=== PATIENT | male | born 1950 | race Caucasian/White ===

== ENCOUNTER 2023-02-19 07:10 | Inpatient (IN) | payer MEDICARE ==
[2023-02-19] VITALS (10 sets, daily range): BP systolic 99–131; BP diastolic 53–84; TEMP 96.1–98.6; O2SAT 92–96
[~2023-02-19] VITALS: Ht 177.8 cm; Wt 111.4 kg
[2023-02-19] MEDS ORDERED: ONDANSETRON 4MG 2ML VIAL IV ONE (08:10)
[2023-02-19] MEDS ORDERED: LIDOCAINE 2% 5ML JELLY UROJET TOP ONE (08:10)
[2023-02-19] MEDS: MORPHINE 2 MG/ML 1ML VIAL IV PRN ×4 (08:23→22:25)
[2023-02-19 09:37] LABS: HEMATOCRIT 37.8 % (42.0-52.0); HEMOGLOBIN 12.7 g/dl (13.5-17.5); MEAN CORPUSCULAR HGB CONC 33.6 g/dl (32.0-36.5); MEAN CORPUSCULAR VOLUME 92.2 fl (80.0-96.0); PLATELET COUNT, AUTOMATED 184 10^3/uL (150-450); WHITE BLOOD COUNT 18.8 10^3/uL (4.0-10.0)
[2023-02-19 10:08] LABS: BLOOD UREA NITROGEN 10 MG/DL (9-23); CALCIUM LEVEL 9.4 MG/DL (8.3-10.6); CARBON DIOXIDE LEVEL 25 MMOL/L (20-31); CHLORIDE LEVEL 103 MMOL/L (98-107); CREATININE FOR GFR 0.82 MG/DL (0.70-1.30); GLOMERULAR FILTRATION RATE > 60.0 (>42); GLUCOSE, FASTING 100 MG/DL (74-106); POTASSIUM SERUM 3.9 MMOL/L (3.5-5.1); SODIUM LEVEL 134 MMOL/L (136-145)
[2023-02-19] MEDS ORDERED: MED REC IN PROGRESS XX SCH (10:15)
[2023-02-19] MEDS ORDERED: LISI20TA33 PO (10:32)
[2023-02-19] MEDS ORDERED: VENL75CA47 PO (10:37)
[2023-02-19] MEDS ORDERED: HOME MED LIST COMPLETE! XX SCH (10:40)
[2023-02-19] MEDS ORDERED: MAALOX 30 ML SUSP *UDC PO PRN (10:45)
[2023-02-19] MEDS ORDERED: MOM 30ML SUSPENSION UDC PO PRN (10:45)
[2023-02-19] MEDS: NS 1,000 ML IV SCH (12:45)
[2023-02-19] MEDS: DOCUSATE SODIUM 100MG CAPSULE PO SCH ×2 (12:56→22:20)
[2023-02-19] MEDS: VENLAFAXINE **XR** 75MG CAPSULE PO SCH (12:57)
[2023-02-19] MEDS ORDERED: ceFAZolin 1GM VIAL As Ordered ONE ×2 (14:42→15:43)
[2023-02-19] MEDS ORDERED: ceFAZolin 2 GM/D5W 50 ML IV BAG As Ordered ONE (14:56)
[2023-02-19] MEDS ORDERED: KETAMINE HCL 200MG/20ML VIAL As Ordered ONE (15:09)
[2023-02-19] MEDS ORDERED: LIDOCAINE 2% 100MG/5ML SDV (FOR ANES.) As Ordered ONE (15:09)
[2023-02-19] MEDS ORDERED: ONDANSETRON 4MG 2ML VIAL As Ordered ONE (15:09)
[2023-02-19] MEDS ORDERED: propofoL 200 MG/20 ML VIAL As Ordered ONE (15:09)
[2023-02-19] MEDS ORDERED: fentaNYL 100 MCG/2 ML INJECTION As Ordered ONE (15:09)
[2023-02-19] MEDS ORDERED: DESFLURANE 240 ML INHALANT As Ordered ONE (15:45)
[2023-02-19] MEDS ORDERED: ACETAMINOPHEN 1000MG 100ML IV BAG As Ordered ONE (17:07)
[2023-02-19] MEDS ORDERED: KETOROLAC 60MG 2ML VIAL As Ordered ONE (17:09)
[2023-02-19] MEDS: ceFAZolin SOD 2 GM in IV 1 EA IV SCH (22:20)
[2023-02-19] MEDS: ACETAMINOPHEN TAB 650MG DOSE (2X325MG) PO PRN (23:06)
[2023-02-20] VITALS (12 sets, daily range): BP systolic 101–123; BP diastolic 60–81; TEMP 98.2–102.1; O2SAT 91–97
[2023-02-20] MEDS ORDERED: MORPHINE 2 MG/ML 1ML VIAL IV PRN (01:15)
[2023-02-20] MEDS ORDERED: carisoprodoL 350 MG TAB PO PRN (01:15)
[2023-02-20] MEDS ORDERED: GABAPENTIN 100 MG CAP PO ONE (02:00)
[2023-02-20] MEDS: ceFAZolin SOD 2 GM in IV 1 EA IV SCH (06:00)
[2023-02-20] MEDS: NS 1,000 ML IV SCH ×3 (06:00→23:06)
[2023-02-20 06:17] LABS: BASO % 0.2 % (0.0-1.0); EOS % 0.3 % (0.0-3.0); HEMATOCRIT 29.7 % (42.0-52.0); LYMPH % 18.1 % (24.0-44.0); MEAN CORPUSCULAR HEMOGLOBIN 31.5 pg (27.0-33.0); MEAN CORPUSCULAR HGB CONC 33.7 g/dl (32.0-36.5); MEAN CORPUSCULAR VOLUME 93.7 fl (80.0-96.0); MONO # 1.1 10^3/uL (0.0-0.8); MONO % 9.5 % (2.0-8.0); NEUTROPHILS # 7.9 10^3/uL (1.5-8.5); NEUTROPHILS % 71.5 % (36.0-66.0); PLATELET COUNT, AUTOMATED 140 10^3/uL (150-450); RED BLOOD COUNT 3.17 10^6/uL (4.30-6.10); WHITE BLOOD COUNT 11.1 10^3/uL (4.0-10.0)
[2023-02-20 06:37] LABS: BLOOD UREA NITROGEN 13 MG/DL (9-23); CALCIUM LEVEL 7.7 MG/DL (8.3-10.6); CARBON DIOXIDE LEVEL 24 MMOL/L (20-31); CHLORIDE LEVEL 104 MMOL/L (98-107); CREATININE FOR GFR 0.79 MG/DL (0.70-1.30); GLOMERULAR FILTRATION RATE > 60.0 (>42); GLUCOSE, FASTING 106 MG/DL (74-106); MAGNESIUM LEVEL 1.7 MG/DL (1.8-2.4); POTASSIUM SERUM 3.6 MMOL/L (3.5-5.1); SODIUM LEVEL 135 MMOL/L (136-145)
[2023-02-20] MEDS ORDERED: MAG SULF 1GM/100ML (MAG RUN) 1 GM in IV 1 EA IV ONE (08:00)
[2023-02-20] MEDS: DOCUSATE SODIUM 100MG CAPSULE PO SCH ×3 (09:00→20:45)
[2023-02-20] MEDS: VENLAFAXINE **XR** 75MG CAPSULE PO SCH (09:07)
[2023-02-20] MEDS: ACETAMINOPHEN TAB 650MG DOSE (2X325MG) PO PRN ×2 (09:07→18:24)
[2023-02-20] MEDS ORDERED: FUROSEMIDE 20MG/2ML VIAL IV ONE (16:00)
[2023-02-20] MEDS: PERCOCET 5MG/325MG TAB PO PRN (17:02)
[2023-02-20] MEDS: ENOXAPARIN 40MG/0.4ML SYRINGE (J1650 PER 10MG) SC SCH (17:03)
[2023-02-20] MEDS ORDERED: VANCOMYCIN HCL 1,000 MG, VIAL MATE ADAPTER 1 EACH in D5W 250 ML IV SCH (18:25)
[2023-02-20] MEDS: PIPERACILLIN/TAZOBACTAM SOD 3.375 GM in D5W MINI-BAG PLUS 50 ML IV SCH ×2 (18:58→23:07)
[2023-02-20 19:02] LABS: BASO % 0.2 % (0.0-1.0); EOS % 0.2 % (0.0-3.0); HEMATOCRIT 29.5 % (42.0-52.0); HEMOGLOBIN 10.1 g/dl (13.5-17.5); LYMPH # 1.7 10^3/uL (1.5-5.0); LYMPH % 14.9 % (24.0-44.0); MEAN CORPUSCULAR HEMOGLOBIN 31.5 pg (27.0-33.0); MEAN CORPUSCULAR HGB CONC 34.2 g/dl (32.0-36.5); MEAN CORPUSCULAR VOLUME 91.9 fl (80.0-96.0); MONO # 1.1 10^3/uL (0.0-0.8); MONO % 9.6 % (2.0-8.0); NEUTROPHILS # 8.5 10^3/uL (1.5-8.5); NEUTROPHILS % 74.7 % (36.0-66.0); PLATELET COUNT, AUTOMATED 147 10^3/uL (150-450); RED BLOOD COUNT 3.21 10^6/uL (4.30-6.10); WHITE BLOOD COUNT 11.4 10^3/uL (4.0-10.0)
[2023-02-20 19:27] LABS: ALBUMIN 2.5 G/DL (3.2-5.2); ALKALINE PHOSPHATASE 73 U/L (46-116); ALT/SGPT 27 U/L (7.0-40); AST/SGOT 87 U/L (<34); BILIRUBIN,TOTAL 0.9 MG/DL (0.3-1.2); BLOOD UREA NITROGEN 9 MG/DL (9-23); CALCIUM LEVEL 8.3 MG/DL (8.3-10.6); CARBON DIOXIDE LEVEL 27 MMOL/L (20-31); CHLORIDE LEVEL 100 MMOL/L (98-107); GLOMERULAR FILTRATION RATE > 60.0 (>42); GLUCOSE, FASTING 116 MG/DL (74-106); MAGNESIUM LEVEL 1.6 MG/DL (1.8-2.4); POTASSIUM SERUM 3.6 MMOL/L (3.5-5.1); SODIUM LEVEL 134 MMOL/L (136-145); TOTAL PROTEIN 5.2 G/DL (5.7-8.2)
[2023-02-20] MEDS ORDERED: VANCOMYCIN HCL 1,000 MG, VIAL MATE ADAPTER 1 EACH in D5W 250 ML IV ONE ×2 (20:00→21:00)
[2023-02-20] MEDS ORDERED: NS 1,000 ML IV ONE (20:10)
[2023-02-20] MEDS ORDERED: IBUPROFEN 400MG TAB PO ONE (20:35)
[2023-02-21] MEDS ORDERED: MAGNESIUM OXIDE 400MG TAB (MAG-OX) PO ONE
[2023-02-21] MEDS ORDERED: NS 1,000 ML IV ONE (00:05)
[2023-02-21 02:30] VITALS: BP 109/62; TEMP 98.7; O2SAT 96
[2023-02-21] MEDS: PERCOCET 5MG/325MG TAB PO PRN ×3 (02:35→23:09)
[2023-02-21 04:09] LABS: BASO % 0.3 % (0.0-1.0); EOS # 0.1 10^3/uL (0.0-0.5); EOS % 0.6 % (0.0-3.0); HEMOGLOBIN 9.7 g/dl (13.5-17.5); LYMPH # 2.1 10^3/uL (1.5-5.0); MEAN CORPUSCULAR HEMOGLOBIN 31.2 pg (27.0-33.0); MEAN CORPUSCULAR HGB CONC 33.4 g/dl (32.0-36.5); MEAN CORPUSCULAR VOLUME 93.2 fl (80.0-96.0); MONO # 1.4 10^3/uL (0.0-0.8); MONO % 12.5 % (2.0-8.0); NEUTROPHILS # 7.8 10^3/uL (1.5-8.5); NEUTROPHILS % 68.1 % (36.0-66.0); PLATELET COUNT, AUTOMATED 130 10^3/uL (150-450); RED BLOOD COUNT 3.11 10^6/uL (4.30-6.10); WHITE BLOOD COUNT 11.5 10^3/uL (4.0-10.0)
[2023-02-21 04:35] LABS: BLOOD UREA NITROGEN 7 MG/DL (9-23); CALCIUM LEVEL 7.3 MG/DL (8.3-10.6); CARBON DIOXIDE LEVEL 26 MMOL/L (20-31); CHLORIDE LEVEL 107 MMOL/L (98-107); GLOMERULAR FILTRATION RATE > 60.0 (>42); GLUCOSE, FASTING 105 MG/DL (74-106); MAGNESIUM LEVEL 1.8 MG/DL (1.8-2.4); POTASSIUM SERUM 4.2 MMOL/L (3.5-5.1); SODIUM LEVEL 138 MMOL/L (136-145)
[2023-02-21 05:40] VITALS: BP 117/66; TEMP 99; O2SAT 96
[2023-02-21] MEDS: PIPERACILLIN/TAZOBACTAM SOD 3.375 GM in D5W MINI-BAG PLUS 50 ML IV SCH ×4 (06:19→23:06)
[2023-02-21] MEDS: CYCLOBENZAPRINE 5MG TABLET PO PRN (06:29)
[2023-02-21] MEDS ORDERED: VANCOMYCIN HCL 750 MG, VIAL MATE ADAPTER 1 EACH in D5W 250 ML IV SCH (08:00)
[2023-02-21] MEDS: DOCUSATE SODIUM 100MG CAPSULE PO SCH ×2 (08:30→22:57)
[2023-02-21] MEDS: VENLAFAXINE **XR** 75MG CAPSULE PO SCH (08:30)
[2023-02-21] MEDS ORDERED: VANCOMYCIN HCL 500 MG in D5W MINI-BAG PLUS 100 ML IV SCH (09:00)
[2023-02-21 10:00] VITALS: BP 120/67; TEMP 98.9; O2SAT 98
[2023-02-21] MEDS: ACETAMINOPHEN TAB 650MG DOSE (2X325MG) PO PRN ×2 (11:14→23:58)
[2023-02-21 14:00] VITALS: BP 150/89; TEMP 98.2; O2SAT 97
[2023-02-21] MEDS: ENOXAPARIN 40MG/0.4ML SYRINGE (J1650 PER 10MG) SC SCH (17:22)
[2023-02-21 18:00] VITALS: BP 121/78; TEMP 98.6; O2SAT 95
[2023-02-21 23:27] VITALS: BP 126/79; TEMP 100.6; O2SAT 95
[2023-02-22 02:04] VITALS: BP 100/68; TEMP 98.9; O2SAT 95
[2023-02-22] MEDS: PIPERACILLIN/TAZOBACTAM SOD 3.375 GM in D5W MINI-BAG PLUS 50 ML IV SCH (05:44)
[2023-02-22 06:00] VITALS: BP 121/75; TEMP 97.4; O2SAT 96
[2023-02-22 06:13] LABS: BASO % 0.3 % (0.0-1.0); EOS # 0.2 10^3/uL (0.0-0.5); EOS % 1.6 % (0.0-3.0); HEMATOCRIT 28.4 % (42.0-52.0); HEMOGLOBIN 9.5 g/dl (13.5-17.5); LYMPH # 2.6 10^3/uL (1.5-5.0); LYMPH % 25.9 % (24.0-44.0); MEAN CORPUSCULAR HEMOGLOBIN 31.7 pg (27.0-33.0); MEAN CORPUSCULAR HGB CONC 33.5 g/dl (32.0-36.5); MEAN CORPUSCULAR VOLUME 94.7 fl (80.0-96.0); MONO # 1.1 10^3/uL (0.0-0.8); MONO % 10.9 % (2.0-8.0); NEUTROPHILS # 6.1 10^3/uL (1.5-8.5); NEUTROPHILS % 60.8 % (36.0-66.0); PLATELET COUNT, AUTOMATED 155 10^3/uL (150-450); WHITE BLOOD COUNT 10.1 10^3/uL (4.0-10.0)
[2023-02-22 06:25] LABS: BLOOD UREA NITROGEN 7 MG/DL (9-23); CALCIUM LEVEL 7.8 MG/DL (8.3-10.6); CARBON DIOXIDE LEVEL 28 MMOL/L (20-31); CHLORIDE LEVEL 105 MMOL/L (98-107); CREATININE FOR GFR 0.69 MG/DL (0.70-1.30); GLOMERULAR FILTRATION RATE > 60.0 (>42); GLUCOSE, FASTING 99 MG/DL (74-106); MAGNESIUM LEVEL 1.8 MG/DL (1.8-2.4); POTASSIUM SERUM 3.6 MMOL/L (3.5-5.1); SODIUM LEVEL 139 MMOL/L (136-145)
[2023-02-22 06:30] LABS: PROCALCITONIN 0.13 ng/ml
[2023-02-22] MEDS: PERCOCET 5MG/325MG TAB PO PRN ×3 (06:30→17:42)
[2023-02-22] MEDS: DOXYCYCLINE HYCLATE 100MG TABLET PO SCH ×2 (08:36→20:13)
[2023-02-22] MEDS: VENLAFAXINE **XR** 75MG CAPSULE PO SCH (08:36)
[2023-02-22] MEDS: DOCUSATE SODIUM 100MG CAPSULE PO SCH ×2 (08:38→20:12)
[2023-02-22 10:00] VITALS: BP 124/82; TEMP 98.7; O2SAT 94
[2023-02-22 14:00] VITALS: BP 116/75; TEMP 98.2; O2SAT 95
[2023-02-22 14:09] LABS: CK-MB VALUE MASS < 1.0 NG/ML (<3.6)
[2023-02-22 14:15] LABS: CPK CREATINE PHOSPHOKINASE 1156 U/L (46-171); MB/CK RELATIVE INDEX 0.08 (< OR =4)
[2023-02-22 15:02] LABS: CK-MB VALUE MASS 1.9 NG/ML (<3.6)
[2023-02-22 15:04] LABS: MB/CK RELATIVE INDEX 0.16 (< OR =4)
[2023-02-22] MEDS: ENOXAPARIN 40MG/0.4ML SYRINGE (J1650 PER 10MG) SC SCH (16:06)
[2023-02-22 20:00] VITALS: BP 137/79; TEMP 98.5; O2SAT 96
[2023-02-22] MEDS: CYCLOBENZAPRINE 5MG TABLET PO PRN (20:27)
[2023-02-23] MEDS: PERCOCET 5MG/325MG TAB PO PRN ×3 (00:22→14:44)
[2023-02-23 02:00] VITALS: BP 117/70; TEMP 98.2; O2SAT 95
[2023-02-23 06:00] VITALS: BP 130/84; TEMP 97.9; O2SAT 95
[2023-02-23 06:31] LABS: BASO % 0.4 % (0.0-1.0); EOS # 0.2 10^3/uL (0.0-0.5); EOS % 2.6 % (0.0-3.0); HEMATOCRIT 27.2 % (42.0-52.0); HEMOGLOBIN 9.2 g/dl (13.5-17.5); LYMPH # 2.7 10^3/uL (1.5-5.0); LYMPH % 28.9 % (24.0-44.0); MEAN CORPUSCULAR HEMOGLOBIN 31.7 pg (27.0-33.0); MEAN CORPUSCULAR HGB CONC 33.8 g/dl (32.0-36.5); MEAN CORPUSCULAR VOLUME 93.8 fl (80.0-96.0); MONO # 1.1 10^3/uL (0.0-0.8); MONO % 11.6 % (2.0-8.0); NEUTROPHILS # 5.2 10^3/uL (1.5-8.5); PLATELET COUNT, AUTOMATED 180 10^3/uL (150-450); WHITE BLOOD COUNT 9.3 10^3/uL (4.0-10.0)
[2023-02-23 07:07] LABS: BLOOD UREA NITROGEN 7 MG/DL (9-23); CALCIUM LEVEL 7.8 MG/DL (8.3-10.6); CARBON DIOXIDE LEVEL 26 MMOL/L (20-31); CHLORIDE LEVEL 104 MMOL/L (98-107); CREATININE FOR GFR 0.67 MG/DL (0.70-1.30); GLOMERULAR FILTRATION RATE > 60.0 (>42); GLUCOSE, FASTING 92 MG/DL (74-106); MAGNESIUM LEVEL 1.7 MG/DL (1.8-2.4); POTASSIUM SERUM 3.3 MMOL/L (3.5-5.1); SODIUM LEVEL 139 MMOL/L (136-145)
[2023-02-23] MEDS ORDERED: POTASSIUM CHLORIDE 10MEQ SR TABLET PO ONE (08:20)
[2023-02-23] MEDS: VENLAFAXINE **XR** 75MG CAPSULE PO SCH (08:39)
[2023-02-23] MEDS: DOXYCYCLINE HYCLATE 100MG TABLET PO SCH ×2 (08:39→21:23)
[2023-02-23] MEDS: DOCUSATE SODIUM 100MG CAPSULE PO SCH ×3 (08:39→21:23)
[2023-02-23] MEDS: CYCLOBENZAPRINE 5MG TABLET PO PRN ×3 (08:39→21:23)
[2023-02-23] MEDS: MAG SULF 1GM/100ML (MAG RUN) 1 GM in IV 1 EA IV SCH ×2 (08:40→09:53)
[2023-02-23] MEDS ORDERED: METOPROLOL TART 25 MG TABLET PO SCH (09:00)
[2023-02-23] MEDS ORDERED: FUROSEMIDE 10MG PER 1/2 TABLET PO ONE (18:00)
[2023-02-23] MEDS: ENOXAPARIN 40MG/0.4ML SYRINGE (J1650 PER 10MG) SC SCH (18:11)
[2023-02-23 20:54] VITALS: BP 104/64; TEMP 98.6; O2SAT 94
[2023-02-23] MEDS: METOPROLOL TART 50 MG TAB PO SCH (21:00)
[2023-02-23 21:32] VITALS: TEMP 100
[2023-02-24] VITALS (9 sets, daily range): BP systolic 102–131; BP diastolic 58–73; TEMP 97.7–100.7; O2SAT 93–95
[2023-02-24] MEDS: PERCOCET 5MG/325MG TAB PO PRN ×2 (02:32→08:57)
[2023-02-24 07:01] LABS: BASO % 0.2 % (0.0-1.0); EOS # 0.3 10^3/uL (0.0-0.5); EOS % 2.9 % (0.0-3.0); HEMATOCRIT 27.8 % (42.0-52.0); HEMOGLOBIN 9.1 g/dl (13.5-17.5); LYMPH # 2.7 10^3/uL (1.5-5.0); LYMPH % 26.7 % (24.0-44.0); MEAN CORPUSCULAR HGB CONC 32.7 g/dl (32.0-36.5); MEAN CORPUSCULAR VOLUME 94.6 fl (80.0-96.0); MONO % 10.2 % (2.0-8.0); NEUTROPHILS # 6.1 10^3/uL (1.5-8.5); NEUTROPHILS % 59.5 % (36.0-66.0); PLATELET COUNT, AUTOMATED 191 10^3/uL (150-450); RED BLOOD COUNT 2.94 10^6/uL (4.30-6.10); WHITE BLOOD COUNT 10.2 10^3/uL (4.0-10.0)
[2023-02-24 07:26] LABS: BLOOD UREA NITROGEN 10 MG/DL (9-23); CARBON DIOXIDE LEVEL 26 MMOL/L (20-31); CHLORIDE LEVEL 105 MMOL/L (98-107); CREATININE FOR GFR 0.74 MG/DL (0.70-1.30); GLOMERULAR FILTRATION RATE > 60.0 (>42); GLUCOSE, FASTING 98 MG/DL (74-106); MAGNESIUM LEVEL 1.7 MG/DL (1.8-2.4); POTASSIUM SERUM 3.9 MMOL/L (3.5-5.1); SODIUM LEVEL 140 MMOL/L (136-145)
[2023-02-24] MEDS: DOCUSATE SODIUM 100MG CAPSULE PO SCH ×2 (08:53→21:21)
[2023-02-24] MEDS: DOXYCYCLINE HYCLATE 100MG TABLET PO SCH ×2 (08:53→21:21)
[2023-02-24] MEDS: VENLAFAXINE **XR** 75MG CAPSULE PO SCH (08:53)
[2023-02-24] MEDS: MAGNESIUM OXIDE 400MG TAB (MAG-OX) PO SCH (08:53)
[2023-02-24] MEDS: MIRALAX *UNIT DOSE* 17GM PACKET PO PRN ×2 (08:53→21:21)
[2023-02-24] MEDS: METOPROLOL TART 50 MG TAB PO SCH ×2 (08:54→23:03)
[2023-02-24] MEDS: CYCLOBENZAPRINE 5MG TABLET PO PRN ×2 (15:48→23:03)
[2023-02-24] MEDS ORDERED: FUROSEMIDE 10MG PER 1/2 TABLET PO ONE (16:00)
[2023-02-24] MEDS: ENOXAPARIN 40MG/0.4ML SYRINGE (J1650 PER 10MG) SC SCH (17:57)
[2023-02-24] MEDS ORDERED: SODIUM CHLORIDE 0.9% 1000ML IV ONE (20:55)
[2023-02-24] MEDS: ACETAMINOPHEN TAB 650MG DOSE (2X325MG) PO PRN (21:22)
[2023-02-24] MEDS ORDERED: IBUPROFEN 400MG TAB PO ONE (23:00)
[2023-02-25 00:21] VITALS: BP 108/70; TEMP 100.1; O2SAT 96
[2023-02-25] MEDS: PERCOCET 5MG/325MG TAB PO PRN ×3 (00:40→20:28)
[2023-02-25 05:30] VITALS: BP 118/66; TEMP 97.2; O2SAT 96
[2023-02-25 05:45] LABS: BASO % 0.2 % (0.0-1.0); EOS # 0.2 10^3/uL (0.0-0.5); EOS % 2.5 % (0.0-3.0); HEMOGLOBIN 8.5 g/dl (13.5-17.5); LYMPH # 2.6 10^3/uL (1.5-5.0); LYMPH % 29.3 % (24.0-44.0); MEAN CORPUSCULAR HEMOGLOBIN 31.4 pg (27.0-33.0); MEAN CORPUSCULAR HGB CONC 32.7 g/dl (32.0-36.5); MEAN CORPUSCULAR VOLUME 95.9 fl (80.0-96.0); MONO # 1.2 10^3/uL (0.0-0.8); MONO % 13.5 % (2.0-8.0); NEUTROPHILS # 4.8 10^3/uL (1.5-8.5); NEUTROPHILS % 53.8 % (36.0-66.0); PLATELET COUNT, AUTOMATED 189 10^3/uL (150-450); RED BLOOD COUNT 2.71 10^6/uL (4.30-6.10); WHITE BLOOD COUNT 8.9 10^3/uL (4.0-10.0)
[2023-02-25 06:22] LABS: BLOOD UREA NITROGEN 11 MG/DL (9-23); CALCIUM LEVEL 7.9 MG/DL (8.3-10.6); CARBON DIOXIDE LEVEL 28 MMOL/L (20-31); CHLORIDE LEVEL 105 MMOL/L (98-107); CREATININE FOR GFR 0.82 MG/DL (0.70-1.30); GLOMERULAR FILTRATION RATE > 60.0 (>42); GLUCOSE, FASTING 110 MG/DL (74-106); MAGNESIUM LEVEL 1.8 MG/DL (1.8-2.4); POTASSIUM SERUM 3.7 MMOL/L (3.5-5.1); SODIUM LEVEL 139 MMOL/L (136-145)
[2023-02-25] MEDS: DOXYCYCLINE HYCLATE 100MG TABLET PO SCH ×2 (09:08→20:27)
[2023-02-25] MEDS: CYCLOBENZAPRINE 5MG TABLET PO PRN ×3 (09:08→23:22)
[2023-02-25] MEDS: VENLAFAXINE **XR** 75MG CAPSULE PO SCH (09:08)
[2023-02-25] MEDS: MIRALAX *UNIT DOSE* 17GM PACKET PO PRN ×2 (09:08→20:27)
[2023-02-25] MEDS: DOCUSATE SODIUM 100MG CAPSULE PO SCH ×2 (09:08→20:27)
[2023-02-25] MEDS: METOPROLOL TART 50 MG TAB PO SCH ×2 (09:08→20:27)
[2023-02-25] MEDS: MAGNESIUM OXIDE 400MG TAB (MAG-OX) PO SCH (09:08)
[2023-02-25 12:34] LABS: HEMATOCRIT 29.7 % (42.0-52.0); HEMOGLOBIN 9.6 g/dl (13.5-17.5)
[2023-02-25] MEDS: ENOXAPARIN 40MG/0.4ML SYRINGE (J1650 PER 10MG) SC SCH (17:17)
[2023-02-26 05:48] LABS: BASO % 0.3 % (0.0-1.0); EOS # 0.3 10^3/uL (0.0-0.5); EOS % 2.8 % (0.0-3.0); HEMATOCRIT 28.2 % (42.0-52.0); LYMPH # 2.7 10^3/uL (1.5-5.0); LYMPH % 29.6 % (24.0-44.0); MEAN CORPUSCULAR HEMOGLOBIN 30.8 pg (27.0-33.0); MEAN CORPUSCULAR HGB CONC 31.9 g/dl (32.0-36.5); MEAN CORPUSCULAR VOLUME 96.6 fl (80.0-96.0); MONO % 11.2 % (2.0-8.0); NEUTROPHILS # 5.1 10^3/uL (1.5-8.5); NEUTROPHILS % 55.3 % (36.0-66.0); PLATELET COUNT, AUTOMATED 249 10^3/uL (150-450); RED BLOOD COUNT 2.92 10^6/uL (4.30-6.10); WHITE BLOOD COUNT 9.2 10^3/uL (4.0-10.0)
[2023-02-26 05:55] VITALS: BP 135/78; TEMP 98.2; O2SAT 96
[2023-02-26 06:12] LABS: BLOOD UREA NITROGEN 13 MG/DL (9-23); CALCIUM LEVEL 7.9 MG/DL (8.3-10.6); CARBON DIOXIDE LEVEL 29 MMOL/L (20-31); CHLORIDE LEVEL 104 MMOL/L (98-107); CREATININE FOR GFR 0.77 MG/DL (0.70-1.30); GLOMERULAR FILTRATION RATE > 60.0 (>42); GLUCOSE, FASTING 95 MG/DL (74-106); MAGNESIUM LEVEL 1.8 MG/DL (1.8-2.4); POTASSIUM SERUM 4.8 MMOL/L (3.5-5.1); SODIUM LEVEL 139 MMOL/L (136-145)
[2023-02-26] MEDS: DOCUSATE SODIUM 100MG CAPSULE PO SCH ×2 (09:00→19:40)
[2023-02-26] MEDS: MAGNESIUM OXIDE 400MG TAB (MAG-OX) PO SCH (09:16)
[2023-02-26] MEDS: DOXYCYCLINE HYCLATE 100MG TABLET PO SCH ×2 (09:16→19:38)
[2023-02-26] MEDS: VENLAFAXINE **XR** 75MG CAPSULE PO SCH (09:16)
[2023-02-26] MEDS: PERCOCET 5MG/325MG TAB PO PRN ×2 (09:17→19:38)
[2023-02-26] MEDS: METOPROLOL TART 50 MG TAB PO SCH ×2 (09:19→19:39)
[2023-02-26] MEDS: CYCLOBENZAPRINE 5MG TABLET PO PRN (15:50)
[2023-02-26] MEDS: ENOXAPARIN 40MG/0.4ML SYRINGE (J1650 PER 10MG) SC SCH (15:50)
[2023-02-27] MEDS: CYCLOBENZAPRINE 5MG TABLET PO PRN ×2 (00:36→09:38)
[2023-02-27 05:22] VITALS: BP 116/64; TEMP 98.8; O2SAT 94
[2023-02-27] MEDS: PERCOCET 5MG/325MG TAB PO PRN (05:30)
[2023-02-27] MEDS: DOCUSATE SODIUM 100MG CAPSULE PO SCH (08:15)
[2023-02-27] MEDS: MAGNESIUM OXIDE 400MG TAB (MAG-OX) PO SCH (08:15)
[2023-02-27] MEDS: VENLAFAXINE **XR** 75MG CAPSULE PO SCH (08:15)
[2023-02-27] MEDS: DOXYCYCLINE HYCLATE 100MG TABLET PO SCH (08:15)
[2023-02-27 08:16] VITALS: BP 111/66
[2023-02-27] MEDS: METOPROLOL TART 50 MG TAB PO SCH (08:16)
[2023-02-27] MEDS ORDERED: CYCL5TAB PO (09:46)
[2023-02-27] MEDS ORDERED: COLA100C5 PO (09:46)
[2023-02-27] MEDS ORDERED: PERCOCET PO (09:46)
[2023-02-27] MEDS ORDERED: LOVE1INJ SC (09:46)
[2023-02-27] MEDS ORDERED: LOPR1TAB6 PO (09:46)
[2023-02-27] MEDS ORDERED: MAGN400T2 PO (09:46)
[2023-02-27] MEDS ORDERED: DOXY100T PO (09:46)
[2023-03-01 09:10] LABS: LYME PCR FOR BODY FLUID Negative (Negative)
== END 2023-02-27 11:06 | DRG 481 ==
LOC: M ED 07:10 → M ED INP 10:42 → ENRESERV 11:14 → M MSPAV 12:32
PROVIDERS: ADMIT Internal Medicine; ATTEND Internal Medicine
PROC: 0QS604Z Reposition Right Upper Femur with Internal Fixation Device, Open Approach (ICD-10-PCS; principal; 2023-02-19 13:00)
DX: M97.01XA Periprosthetic fracture around internal prosthetic right hip joint, initial encounter (principal); E87.1 Hypo-osmolality and hyponatremia; J98.11 Atelectasis; E87.20 Acidosis, unspecified; R65.10 Systemic inflammatory response syndrome (SIRS) of non-infectious origin without acute organ dysfunction; W18.09XA Striking against other object with subsequent fall, initial encounter; Y92.89 Other specified places as the place of occurrence of the external cause; Y93.9 Activity, unspecified; I10 Essential (primary) hypertension; F39 Unspecified mood [affective] disorder; D64.9 Anemia, unspecified; G20 Parkinson's disease; Z66 Do not resuscitate; F03.90 Unspecified dementia, unspecified severity, without behavioral disturbance, psychotic disturbance, mood disturbance, and anxiety; K57.90 Diverticulosis of intestine, part unspecified, without perforation or abscess without bleeding; K76.89 Other specified diseases of liver; R50.82 Postprocedural fever; R29.6 Repeated falls; Y99.8 Other external cause status; Z79.899 Other long term (current) drug therapy

== ENCOUNTER 2024-02-08 06:40 | Inpatient (IN) | payer MEDICARE ==
[~2024-02-08] VITALS: Ht 177.8 cm; Wt 94.1 kg
[~2024-02-08 06:40] MED LIST: COLA100C5 PO; CYCL5TAB PO; DOXY100T PO; LISI20TA33 PO; LOPR1TAB6 PO; LOVE1INJ SC; MAGN400T2 PO; PERCOCET PO; VENL75CA47 PO
[2024-02-08] MEDS: MORPHINE 4 MG/ML 1ML VIAL IV PRN ×2 (07:24→14:06)
[2024-02-08] MEDS: ONDANSETRON 4MG 2ML VIAL IV ONE (07:24)
[2024-02-08 08:16] LABS: HEMATOCRIT 38.9 % (42.0-52.0); HEMOGLOBIN 13.5 g/dl (13.5-17.5); MEAN CORPUSCULAR HEMOGLOBIN 33.3 pg (27.0-33.0); MEAN CORPUSCULAR HGB CONC 34.7 g/dl (32.0-36.5); MEAN CORPUSCULAR VOLUME 95.8 fl (80.0-96.0); PLATELET COUNT, AUTOMATED 224 10^3/uL (150-450); RED BLOOD COUNT 4.06 10^6/uL (4.30-6.10); WHITE BLOOD COUNT 11.2 10^3/uL (4.0-10.0)
[2024-02-08 08:25] LABS: BLOOD UREA NITROGEN 13 MG/DL (9-23); CALCIUM LEVEL 8.9 MG/DL (8.3-10.6); CARBON DIOXIDE LEVEL 26 MMOL/L (20-31); CHLORIDE LEVEL 102 MMOL/L (98-107); CREATININE FOR GFR 0.75 MG/DL (0.70-1.30); GLOMERULAR FILTRATION RATE > 60.0 (>42); GLUCOSE, FASTING 107 MG/DL (74-106); POTASSIUM SERUM 4.1 MMOL/L (3.5-5.1); SODIUM LEVEL 133 MMOL/L (136-145)
[2024-02-08] MEDS: NS 1,000 ML IV SCH (08:26)
[2024-02-08] MEDS: LORazepam 2 MG/ML 1ML VIAL IV ONE (08:46)
[2024-02-08] MEDS ORDERED: LEXA1TAB PO (09:21)
[2024-02-08] MEDS ORDERED: CARB25TA9 PO (09:21)
[2024-02-08] MEDS ORDERED: ACET32TAB PO (09:21)
[2024-02-08] MEDS ORDERED: ACET-907 PO (09:23)
[2024-02-08] MEDS ORDERED: HOME MED LIST COMPLETE! XX SCH (09:25)
[2024-02-08 09:58] VITALS: BP 146/88; TEMP 97; O2SAT 95
[2024-02-08] MEDS ORDERED: ONDANSETRON 4MG 2ML VIAL IV PRN (11:00)
[2024-02-08] MEDS: KETOROLAC 30 MG/ML 1ML VIAL IV ONE (11:05)
[2024-02-08 12:18] VITALS: BP 107/75; TEMP 98.4; O2SAT 95
[2024-02-08] MEDS ORDERED: KETOROLAC 30 MG/ML 1ML VIAL IV PRN (17:00)
[2024-02-08] MEDS: SINEMET 25-100 MG TAB PO SCH (17:13)
[2024-02-08] MEDS: KETOROLAC 30 MG/ML 1ML VIAL IV SCH (17:14)
[2024-02-08 19:39] VITALS: BP 107/60; TEMP 97.9; O2SAT 94
[2024-02-08] MEDS: SENOKOT S TAB PO SCH (20:15)
[2024-02-09 04:27] VITALS: BP 106/61; TEMP 98.4; O2SAT 94
[2024-02-09] MEDS: oxyCODONE 5MG TAB PO PRN (05:42)
[2024-02-09 07:16] LABS: HEMATOCRIT 36.2 % (42.0-52.0); HEMOGLOBIN 11.9 g/dl (13.5-17.5); MEAN CORPUSCULAR HGB CONC 32.9 g/dl (32.0-36.5); MEAN CORPUSCULAR VOLUME 97.3 fl (80.0-96.0); PLATELET COUNT, AUTOMATED 163 10^3/uL (150-450); RED BLOOD COUNT 3.72 10^6/uL (4.30-6.10); WHITE BLOOD COUNT 9.2 10^3/uL (4.0-10.0)
[2024-02-09] MEDS ORDERED: MIRALAX *UNIT DOSE* 17GM PACKET PO PRN (07:45)
[2024-02-09 07:50] LABS: BLOOD UREA NITROGEN 16 MG/DL (9-23); CALCIUM LEVEL 8.6 MG/DL (8.3-10.6); CARBON DIOXIDE LEVEL 26 MMOL/L (20-31); CHLORIDE LEVEL 104 MMOL/L (98-107); CREATININE FOR GFR 0.71 MG/DL (0.70-1.30); GLOMERULAR FILTRATION RATE > 60.0 (>42); GLUCOSE, FASTING 105 MG/DL (74-106); POTASSIUM SERUM 4.1 MMOL/L (3.5-5.1); SODIUM LEVEL 134 MMOL/L (136-145)
[2024-02-09 12:00] VITALS: BP 115/68; TEMP 98.2; O2SAT 96
[2024-02-09 20:08] VITALS: BP 112/65; TEMP 97.3; O2SAT 93
[2024-02-10 04:23] VITALS: BP 107/65; TEMP 97.7; O2SAT 91
[2024-02-10] MEDS: ACETAMINOPHEN 325 MG TAB PO PRN (10:17)
[2024-02-10 12:17] VITALS: BP 139/88; TEMP 97.7; O2SAT 94
[2024-02-10 20:00] VITALS: BP 106/61; TEMP 97.9; O2SAT 97
[2024-02-11 04:00] VITALS: BP 137/83; TEMP 97.7; O2SAT 97
[2024-02-11 10:13] LABS: HEMATOCRIT 34.3 % (42.0-52.0); HEMOGLOBIN 11.8 g/dl (13.5-17.5); MEAN CORPUSCULAR HEMOGLOBIN 33.1 pg (27.0-33.0); MEAN CORPUSCULAR HGB CONC 34.4 g/dl (32.0-36.5); MEAN CORPUSCULAR VOLUME 96.3 fl (80.0-96.0); PLATELET COUNT, AUTOMATED 170 10^3/uL (150-450); RED BLOOD COUNT 3.56 10^6/uL (4.30-6.10); WHITE BLOOD COUNT 8.5 10^3/uL (4.0-10.0)
[2024-02-11 10:50] LABS: BLOOD UREA NITROGEN 15 MG/DL (9-23); CALCIUM LEVEL 8.4 MG/DL (8.3-10.6); CARBON DIOXIDE LEVEL 28 MMOL/L (20-31); CHLORIDE LEVEL 105 MMOL/L (98-107); CREATININE FOR GFR 0.63 MG/DL (0.70-1.30); GLOMERULAR FILTRATION RATE > 60.0 (>42); GLUCOSE, FASTING 100 MG/DL (74-106); POTASSIUM SERUM 4.4 MMOL/L (3.5-5.1); SODIUM LEVEL 137 MMOL/L (136-145)
[2024-02-11 13:03] VITALS: BP 130/79; TEMP 98.4; O2SAT 96
[2024-02-11] MEDS: ceFAZolin 2 GM/D5W 50 ML IV BAG As Ordered ONE (17:44)
[2024-02-11] MEDS ORDERED: LIDOCAINE 2% 100MG/5ML SDV (FOR ANES.) As Ordered ONE (17:45)
[2024-02-11] MEDS ORDERED: ROCURONIUM BROMIDE 50MG/5ML VIAL As Ordered ONE (17:45)
[2024-02-11] MEDS ORDERED: fentaNYL 250 MCG/5 ML INJECTION As Ordered ONE (17:45)
[2024-02-11] MEDS ORDERED: propofoL 200 MG/20 ML VIAL As Ordered ONE (17:45)
[2024-02-11] MEDS ORDERED: MIDAZOLAM INJ 2MG/2ML VIAL As Ordered ONE (17:45)
[2024-02-11] MEDS: TRANEXAMIC ACID 100 MG/ML 10ML VIAL As Ordered ONE (17:51)
[2024-02-11] MEDS ORDERED: ONDANSETRON 4MG 2ML VIAL As Ordered ONE (17:53)
[2024-02-11] MEDS ORDERED: ACETAMINOPHEN 1000MG 100ML IV BAG As Ordered ONE (18:14)
[2024-02-11] MEDS ORDERED: SUGAMMADEX SODIUM 500 MG/5 ML VIAL (BRIDION) As Ordered ONE (18:17)
[2024-02-11] MEDS: VANCOMYCIN 1000MG/20ML VIAL As Ordered ONE (18:59)
[2024-02-11] MEDS ORDERED: HYDROmorphone HCL 2MG/ML 1ML VIAL As Ordered ONE (19:29)
[2024-02-11] MEDS ORDERED: PHENYLephrine 500MCG 5ML (100MCG/ML) SYRINGE As Ordered ONE (19:49)
[2024-02-11] MEDS ORDERED: PHENYLEPHRINE 10MG/ML 1ML VIAL As Ordered ONE (20:29)
[2024-02-11] MEDS ORDERED: oxyCODONE 5MG TAB PO PRN (22:10)
[2024-02-11] MEDS: LR 1,000 ML IV SCH ×2 (22:10→23:37)
[2024-02-11] MEDS ORDERED: ONDANSETRON 4MG 2ML VIAL IV PRN (22:10)
[2024-02-11] MEDS ORDERED: HYDROMORPHONE HCL 0.5 MG/ 0.5 ML SYRINGE IV PRN (22:10)
[2024-02-11] MEDS ORDERED: fentaNYL 100 MCG/2 ML INJECTION IV PRN (22:10)
[2024-02-11] MEDS ORDERED: LABETALOL 100MG/20ML VIAL As Ordered ONE (22:29)
[2024-02-11] MEDS ORDERED: LABETALOL 100MG/20ML VIAL IV PRN (22:30)
[2024-02-11 22:56] VITALS: BP 130/79; TEMP 96.8; O2SAT 97
[2024-02-11 23:30] VITALS: BP 127/79; TEMP 97.9; O2SAT 98
[2024-02-12] VITALS (9 sets, daily range): BP systolic 98–127; BP diastolic 62–77; TEMP 97.3–98.8; O2SAT 93–97
[2024-02-12 07:06] LABS: BASO % 0.2 % (0.0-1.0); EOS % 0.1 % (0.0-3.0); HEMATOCRIT 29.9 % (42.0-52.0); HEMOGLOBIN 10.1 g/dl (13.5-17.5); LYMPH # 1.4 10^3/uL (1.5-5.0); MEAN CORPUSCULAR HEMOGLOBIN 32.6 pg (27.0-33.0); MEAN CORPUSCULAR HGB CONC 33.8 g/dl (32.0-36.5); MEAN CORPUSCULAR VOLUME 96.5 fl (80.0-96.0); MONO # 1.2 10^3/uL (0.0-0.8); MONO % 9.5 % (2.0-8.0); NEUTROPHILS # 10.2 10^3/uL (1.5-8.5); NEUTROPHILS % 78.8 % (36.0-66.0); PLATELET COUNT, AUTOMATED 166 10^3/uL (150-450)
[2024-02-12 07:31] LABS: BLOOD UREA NITROGEN 14 MG/DL (9-23); CALCIUM LEVEL 8.3 MG/DL (8.3-10.6); CARBON DIOXIDE LEVEL 27 MMOL/L (20-31); CHLORIDE LEVEL 102 MMOL/L (98-107); CREATININE FOR GFR 0.68 MG/DL (0.70-1.30); GLOMERULAR FILTRATION RATE > 60.0 (>42); GLUCOSE, FASTING 108 MG/DL (74-106); POTASSIUM SERUM 4.8 MMOL/L (3.5-5.1); SODIUM LEVEL 134 MMOL/L (136-145)
[2024-02-12] MEDS: ASPIRIN 81MG ENTERIC TABLET PO SCH (09:16)
[2024-02-12] MEDS: ceFAZolin SOD 2 GM in IV 1 EA IV SCH (11:51)
[2024-02-12] MEDS: NS 1,000 ML IV ONE (14:33)
[2024-02-12 18:40] LABS: BASO % 0.2 % (0.0-1.0); EOS # 0.1 10^3/uL (0.0-0.5); EOS % 1.3 % (0.0-3.0); HEMATOCRIT 25.1 % (42.0-52.0); HEMOGLOBIN 8.5 g/dl (13.5-17.5); LYMPH # 1.8 10^3/uL (1.5-5.0); MEAN CORPUSCULAR HEMOGLOBIN 32.9 pg (27.0-33.0); MEAN CORPUSCULAR HGB CONC 33.9 g/dl (32.0-36.5); MEAN CORPUSCULAR VOLUME 97.3 fl (80.0-96.0); MONO # 1.5 10^3/uL (0.0-0.8); MONO % 14.1 % (2.0-8.0); NEUTROPHILS # 7.1 10^3/uL (1.5-8.5); PLATELET COUNT, AUTOMATED 142 10^3/uL (150-450); RED BLOOD COUNT 2.58 10^6/uL (4.30-6.10); WHITE BLOOD COUNT 10.6 10^3/uL (4.0-10.0)
[2024-02-12] MEDS: ESCITALOPRAM OXALATE 10 MG TAB (LEXAPRO) PO SCH (20:19)
[2024-02-13 04:00] VITALS: BP 98/62; TEMP 97.9; O2SAT 96
[2024-02-13 06:07] LABS: BASO % 0.2 % (0.0-1.0); EOS # 0.3 10^3/uL (0.0-0.5); EOS % 2.9 % (0.0-3.0); HEMATOCRIT 26.3 % (42.0-52.0); HEMOGLOBIN 8.5 g/dl (13.5-17.5); LYMPH # 1.6 10^3/uL (1.5-5.0); LYMPH % 15.9 % (24.0-44.0); MEAN CORPUSCULAR HEMOGLOBIN 31.7 pg (27.0-33.0); MEAN CORPUSCULAR HGB CONC 32.3 g/dl (32.0-36.5); MEAN CORPUSCULAR VOLUME 98.1 fl (80.0-96.0); MONO # 1.3 10^3/uL (0.0-0.8); MONO % 12.9 % (2.0-8.0); NEUTROPHILS # 6.8 10^3/uL (1.5-8.5); NEUTROPHILS % 67.6 % (36.0-66.0); PLATELET COUNT, AUTOMATED 140 10^3/uL (150-450); RED BLOOD COUNT 2.68 10^6/uL (4.30-6.10); WHITE BLOOD COUNT 10.1 10^3/uL (4.0-10.0)
[2024-02-13 06:30] LABS: BLOOD UREA NITROGEN 14 MG/DL (9-23); CALCIUM LEVEL 7.8 MG/DL (8.3-10.6); CARBON DIOXIDE LEVEL 28 MMOL/L (20-31); CHLORIDE LEVEL 103 MMOL/L (98-107); CREATININE FOR GFR 0.69 MG/DL (0.70-1.30); GLOMERULAR FILTRATION RATE > 60.0 (>42); GLUCOSE, FASTING 110 MG/DL (74-106); POTASSIUM SERUM 3.7 MMOL/L (3.5-5.1); SODIUM LEVEL 135 MMOL/L (136-145)
[2024-02-13 12:56] VITALS: BP 116/66; TEMP 98.6; O2SAT 94
[2024-02-13 19:58] VITALS: BP 119/66; TEMP 99; O2SAT 95
[2024-02-13] MEDS: RAMELTEON 8 MG TAB (ROZEREM) PO PRN (20:07)
[2024-02-14 05:20] VITALS: BP 136/75; TEMP 98.8; O2SAT 95
[2024-02-14 06:17] LABS: BASO % 0.3 % (0.0-1.0); EOS # 0.3 10^3/uL (0.0-0.5); EOS % 2.8 % (0.0-3.0); HEMOGLOBIN 8.2 g/dl (13.5-17.5); LYMPH # 1.4 10^3/uL (1.5-5.0); LYMPH % 12.5 % (24.0-44.0); MEAN CORPUSCULAR HEMOGLOBIN 33.2 pg (27.0-33.0); MEAN CORPUSCULAR HGB CONC 34.2 g/dl (32.0-36.5); MEAN CORPUSCULAR VOLUME 97.2 fl (80.0-96.0); MONO # 1.2 10^3/uL (0.0-0.8); MONO % 10.7 % (2.0-8.0); NEUTROPHILS # 8.2 10^3/uL (1.5-8.5); NEUTROPHILS % 73.3 % (36.0-66.0); PLATELET COUNT, AUTOMATED 145 10^3/uL (150-450); RED BLOOD COUNT 2.47 10^6/uL (4.30-6.10); WHITE BLOOD COUNT 11.2 10^3/uL (4.0-10.0)
[2024-02-14 06:49] LABS: BLOOD UREA NITROGEN 12 MG/DL (9-23); CARBON DIOXIDE LEVEL 27 MMOL/L (20-31); CHLORIDE LEVEL 103 MMOL/L (98-107); GLOMERULAR FILTRATION RATE > 60.0 (>42); GLUCOSE, FASTING 113 MG/DL (74-106); POTASSIUM SERUM 3.9 MMOL/L (3.5-5.1); SODIUM LEVEL 134 MMOL/L (136-145)
[2024-02-14 12:34] VITALS: BP 125/71; TEMP 97.7; O2SAT 95
[2024-02-14] MEDS: BISACODYL 10MG SUPP PR SCH (15:49)
[2024-02-14] MEDS: MIRALAX *UNIT DOSE* 17GM PACKET PO SCH (15:49)
[2024-02-14 20:06] VITALS: BP 112/69; TEMP 98.1; O2SAT 96
[2024-02-15 04:50] VITALS: BP 112/72; TEMP 97.7; O2SAT 97
[2024-02-15 07:32] LABS: BASO % 0.3 % (0.0-1.0); EOS # 0.3 10^3/uL (0.0-0.5); EOS % 3.4 % (0.0-3.0); HEMATOCRIT 24.8 % (42.0-52.0); HEMOGLOBIN 8.2 g/dl (13.5-17.5); LYMPH # 1.3 10^3/uL (1.5-5.0); LYMPH % 13.7 % (24.0-44.0); MEAN CORPUSCULAR HEMOGLOBIN 32.5 pg (27.0-33.0); MEAN CORPUSCULAR HGB CONC 33.1 g/dl (32.0-36.5); MEAN CORPUSCULAR VOLUME 98.4 fl (80.0-96.0); MONO % 11.1 % (2.0-8.0); NEUTROPHILS # 6.5 10^3/uL (1.5-8.5); NEUTROPHILS % 70.8 % (36.0-66.0); PLATELET COUNT, AUTOMATED 186 10^3/uL (150-450); RED BLOOD COUNT 2.52 10^6/uL (4.30-6.10); WHITE BLOOD COUNT 9.1 10^3/uL (4.0-10.0)
[2024-02-15 07:56] LABS: BLOOD UREA NITROGEN 11 MG/DL (9-23); CALCIUM LEVEL 7.8 MG/DL (8.3-10.6); CARBON DIOXIDE LEVEL 28 MMOL/L (20-31); CHLORIDE LEVEL 102 MMOL/L (98-107); CREATININE FOR GFR 0.61 MG/DL (0.70-1.30); GLOMERULAR FILTRATION RATE > 60.0 (>42); GLUCOSE, FASTING 107 MG/DL (74-106); POTASSIUM SERUM 4.1 MMOL/L (3.5-5.1); SODIUM LEVEL 133 MMOL/L (136-145)
[2024-02-15] MEDS ORDERED: BISACODYL 10MG SUPP PR PRN (08:00)
[2024-02-15] MEDS: methocarbamoL 750 MG TAB PO ONE (11:07)
[2024-02-15 12:00] VITALS: BP 116/56; TEMP 98.6; O2SAT 96
[2024-02-15 20:12] VITALS: BP 118/72; TEMP 98.4; O2SAT 97
[2024-02-16 03:58] VITALS: BP 124/74; TEMP 97.9; O2SAT 98
[2024-02-16 06:03] LABS: BASO % 0.2 % (0.0-1.0); EOS # 0.3 10^3/uL (0.0-0.5); EOS % 3.3 % (0.0-3.0); HEMATOCRIT 25.9 % (42.0-52.0); HEMOGLOBIN 8.6 g/dl (13.5-17.5); LYMPH # 1.5 10^3/uL (1.5-5.0); MEAN CORPUSCULAR HEMOGLOBIN 32.7 pg (27.0-33.0); MEAN CORPUSCULAR HGB CONC 33.2 g/dl (32.0-36.5); MEAN CORPUSCULAR VOLUME 98.5 fl (80.0-96.0); MONO % 11.3 % (2.0-8.0); NEUTROPHILS # 6.2 10^3/uL (1.5-8.5); NEUTROPHILS % 68.4 % (36.0-66.0); PLATELET COUNT, AUTOMATED 205 10^3/uL (150-450); RED BLOOD COUNT 2.63 10^6/uL (4.30-6.10); WHITE BLOOD COUNT 9.1 10^3/uL (4.0-10.0)
[2024-02-16 06:42] LABS: BLOOD UREA NITROGEN 13 MG/DL (9-23); CALCIUM LEVEL 7.8 MG/DL (8.3-10.6); CARBON DIOXIDE LEVEL 27 MMOL/L (20-31); CHLORIDE LEVEL 103 MMOL/L (98-107); CREATININE FOR GFR 0.64 MG/DL (0.70-1.30); GLOMERULAR FILTRATION RATE > 60.0 (>42); GLUCOSE, FASTING 105 MG/DL (74-106); POTASSIUM SERUM 4.5 MMOL/L (3.5-5.1); SODIUM LEVEL 134 MMOL/L (136-145)
[2024-02-16] MEDS: methocarbamoL 750 MG TAB PO PRN (11:00)
[2024-02-16 12:00] VITALS: BP 116/70; TEMP 98.1; O2SAT 98
[2024-02-16 20:06] VITALS: BP 104/65; TEMP 98.4; O2SAT 97
[2024-02-17 03:24] VITALS: BP 127/67; TEMP 98.1; O2SAT 97
[2024-02-17] MEDS ORDERED: traZODone 25MG PER 1/2 TABLET PO PRN (08:30)
[2024-02-17] MEDS: traZODone 25MG PER 1/2 TABLET PO ONE (08:43)
[2024-02-17 11:30] VITALS: BP 105/70; TEMP 98.1; O2SAT 96
[2024-02-17 20:36] VITALS: BP 106/69; TEMP 97.5; O2SAT 97
[2024-02-18 05:11] VITALS: BP 121/72; TEMP 98.1
[2024-02-18 07:28] LABS: BASO % 0.2 % (0.0-1.0); EOS # 0.5 10^3/uL (0.0-0.5); EOS % 4.7 % (0.0-3.0); HEMATOCRIT 25.6 % (42.0-52.0); HEMOGLOBIN 8.5 g/dl (13.5-17.5); LYMPH # 1.9 10^3/uL (1.5-5.0); LYMPH % 18.1 % (24.0-44.0); MEAN CORPUSCULAR HEMOGLOBIN 33.1 pg (27.0-33.0); MEAN CORPUSCULAR HGB CONC 33.2 g/dl (32.0-36.5); MEAN CORPUSCULAR VOLUME 99.6 fl (80.0-96.0); MONO # 1.1 10^3/uL (0.0-0.8); MONO % 10.8 % (2.0-8.0); NEUTROPHILS # 6.7 10^3/uL (1.5-8.5); PLATELET COUNT, AUTOMATED 268 10^3/uL (150-450); RED BLOOD COUNT 2.57 10^6/uL (4.30-6.10); WHITE BLOOD COUNT 10.4 10^3/uL (4.0-10.0)
[2024-02-18 08:12] LABS: BLOOD UREA NITROGEN 15 MG/DL (9-23); CALCIUM LEVEL 7.9 MG/DL (8.3-10.6); CHLORIDE LEVEL 105 MMOL/L (98-107); CREATININE FOR GFR 0.62 MG/DL (0.70-1.30); GLOMERULAR FILTRATION RATE > 60.0 (>42); GLUCOSE, FASTING 95 MG/DL (74-106); POTASSIUM SERUM 4.2 MMOL/L (3.5-5.1); SODIUM LEVEL 137 MMOL/L (136-145)
[2024-02-18 08:50] LABS: CARBON DIOXIDE LEVEL 27 MMOL/L (20-31)
[2024-02-18 12:21] VITALS: BP 116/77; TEMP 98.6; O2SAT 97
[2024-02-18] MEDS ORDERED: MIRA33506 PO (19:07)
[2024-02-18] MEDS ORDERED: OXYC-517 PO (19:07)
[2024-02-18] MEDS ORDERED: SENN-52 PO (19:07)
[2024-02-18] MEDS ORDERED: RAME8TAB2 PO (19:07)
[2024-02-18] MEDS ORDERED: METH-1165 PO (19:07)
[2024-02-18] MEDS ORDERED: ASPI81TAEC PO (19:07)
[2024-02-18 20:40] VITALS: BP 111/72; TEMP 97.9; O2SAT 96
[2024-02-19 05:21] VITALS: BP 115/70; TEMP 98.1; O2SAT 95
== END 2024-02-19 10:15 | DRG 522 ==
LOC: M ED 06:40 → EDBD 06:40 → M ED INP 08:51 → M MS5PR 09:54
PROVIDERS: ADMIT Internal Medicine Nephrology; ATTEND Internal Medicine
PROC: 30233J1 Transfusion of Nonautologous Serum Albumin into Peripheral Vein, Percutaneous Approach (ICD-10-PCS; 2024-02-11)
PROC: 0SRS0J9 Replacement of Left Hip Joint, Femoral Surface with Synthetic Substitute, Cemented, Open Approach (ICD-10-PCS; principal; 2024-02-12)
DX: S72.142A Displaced intertrochanteric fracture of left femur, initial encounter for closed fracture (principal); F02.818 Dementia in other diseases classified elsewhere, unspecified severity, with other behavioral disturbance; G20.C Parkinsonism, unspecified; I10 Essential (primary) hypertension; G31.83 Neurocognitive disorder with Lewy bodies; H53.001 Unspecified amblyopia, right eye; R33.9 Retention of urine, unspecified; F39 Unspecified mood [affective] disorder; R26.89 Other abnormalities of gait and mobility; R29.6 Repeated falls; Z96.641 Presence of right artificial hip joint; Z66 Do not resuscitate; Z79.899 Other long term (current) drug therapy; Z91.048 Other nonmedicinal substance allergy status; W01.0XXA Fall on same level from slipping, tripping and stumbling without subsequent striking against object, initial encounter; Y92.9 Unspecified place or not applicable; Y93.89 Activity, other specified

== ENCOUNTER → 2024-02-24 | Outpatient (REF) ==
[~2024-02-24] MED LIST changes: +ACET-907 PO; +ACET32TAB PO; +ASPI81TAEC PO; +CARB25TA9 PO; +LEXA1TAB PO; +METH-1165 PO; +MIRA33506 PO; +OXYC-517 PO; +RAME8TAB2 PO; +SENN-52 PO
[2024-02-24 12:17] LABS: HEMATOCRIT 35.4 % (42.0-52.0); HEMOGLOBIN 11.1 g/dl (13.5-17.5); MEAN CORPUSCULAR HEMOGLOBIN 32.2 pg (27.0-33.0); MEAN CORPUSCULAR HGB CONC 31.4 g/dl (32.0-36.5); MEAN CORPUSCULAR VOLUME 102.6 fl (80.0-96.0); PLATELET COUNT, AUTOMATED 406 10^3/uL (150-450); RED BLOOD COUNT 3.45 10^6/uL (4.30-6.10); WHITE BLOOD COUNT 8.1 10^3/uL (4.0-10.0)
[2024-02-24 12:54] LABS: BLOOD UREA NITROGEN 12 MG/DL (9-23); CALCIUM LEVEL 8.6 MG/DL (8.3-10.6); CARBON DIOXIDE LEVEL 28 MMOL/L (20-31); CHLORIDE LEVEL 102 MMOL/L (98-107); CREATININE FOR GFR 0.66 MG/DL (0.70-1.30); GLOMERULAR FILTRATION RATE > 60.0 (>42); GLUCOSE, FASTING 96 MG/DL (74-106); POTASSIUM SERUM 4.7 MMOL/L (3.5-5.1); SODIUM LEVEL 137 MMOL/L (136-145)
== END ==
PROVIDERS: ATTEND Physician Assistant
DX: I10 Essential (primary) hypertension (principal)

== ENCOUNTER → 2024-03-02 | Outpatient (REF) ==
[2024-03-02 12:02] LABS: HEMATOCRIT 33.8 % (42.0-52.0); HEMOGLOBIN 10.9 g/dl (13.5-17.5); MEAN CORPUSCULAR HGB CONC 32.2 g/dl (32.0-36.5); MEAN CORPUSCULAR VOLUME 99.1 fl (80.0-96.0); PLATELET COUNT, AUTOMATED 275 10^3/uL (150-450); RED BLOOD COUNT 3.41 10^6/uL (4.30-6.10); WHITE BLOOD COUNT 6.7 10^3/uL (4.0-10.0)
[2024-03-02 12:22] LABS: BLOOD UREA NITROGEN 11 MG/DL (9-23); CALCIUM LEVEL 8.7 MG/DL (8.3-10.6); CARBON DIOXIDE LEVEL 29 MMOL/L (20-31); CHLORIDE LEVEL 103 MMOL/L (98-107); GLOMERULAR FILTRATION RATE > 60.0 (>42); GLUCOSE, FASTING 106 MG/DL (74-106); POTASSIUM SERUM 4.2 MMOL/L (3.5-5.1); SODIUM LEVEL 137 MMOL/L (136-145)
== END ==
PROVIDERS: ATTEND Physician Assistant
DX: I10 Essential (primary) hypertension (principal)

== ENCOUNTER → 2024-03-05 | Outpatient (CLI) | payer MEDICARE | LOC: M SOG 07:58 | PROVIDERS: ATTEND Physician Assistant | DX: S72.002D Fracture of unspecified part of neck of left femur, subsequent encounter for closed fracture with routine healing (principal) ==

== ENCOUNTER → 2024-03-31 | Outpatient (CLI) | payer MEDICARE | LOC: M SOG 07:55 | PROVIDERS: ATTEND Physician Assistant | DX: S72.002D Fracture of unspecified part of neck of left femur, subsequent encounter for closed fracture with routine healing (principal); Z96.643 Presence of artificial hip joint, bilateral ==